=== PATIENT | female | born 1975 | race African-American/Black ===

== ENCOUNTER 2020-08-06 23:39 | Inpatient (IN) | payer SELFPAY ==
[~2020-08-06] VITALS: Ht 165.1 cm; Wt 81.8 kg
[2020-08-06] MEDS ORDERED: METHYLPREDNISOLONE SOD SUCC 125 MG/2 ML VIAL IV STA (23:54)
[2020-08-06] MEDS ORDERED: IPRATROPIUM BROMIDE (0.02%) 0.5MG/2.5ML NEB HHN STA (23:54)
[2020-08-06] MEDS ORDERED: ONDANSETRON HCL 4MG/2ML INJ IV STA (23:54)
[2020-08-06] MEDS ORDERED: EPINEPHRINE 1:1000 1 MG/ML AMP SUBCUT STA (23:54)
[2020-08-07] MEDS ORDERED: SODIUM CHLORIDE 0.9% 1,000 ML IV ONE
[2020-08-07] MEDS ORDERED: MAGNESIUM 2 G PREMIX 50 ML IV ONE
[2020-08-07] MEDS: ALBUTEROL (0.083%) 2.5MG/3ML NEB HHN SCH ×3 (00:10→01:40)
[2020-08-07 00:39] LABS: BASOPHILS % 0.3 % (0.0-2.0); EOSINOPHILS % 5.3 % (0.0-5.0); HEMATOCRIT. 42.6 % (36.0-48.0); HEMOGLOBIN. 14.1 g/dL (12.0-16.0); LYMPHOCYTES % 20.6 % (20.0-50.0); MEAN CORPUSCULAR HEMOGLOBIN 29.7 pg (28.0-32.0); MEAN CORPUSCULAR VOLUME 89.8 fL (81.0-99.0); MEAN PLATELET VOLUME 8.6 fl (7.4-10.4); MONOCYTES % 7.2 % (2.0-8.0); NEUTROPHILS % 66.6 % (40.0-76.0); PLATELET 314 x1000/uL (130-400); RED BLOOD CELL COUNT 4.74 mill/uL (4.2-5.4); RED CELL DISTRIBUTION WIDTH 14.6 % (11.6-14.6)
[2020-08-07 00:46] LABS: CHLORIDE 107 mEq/L (98-107)
[2020-08-07 03:05] LABS: BG BASE EXCESS -3.4 mmol/L (-2.0-2.0); BG DEOXYHEMOGLOBIN 4.7 % (0.0-5.0); BG FRACTION INSPIRED OXYGEN 28; BG HCO3 ACT 22.7 mmol/L (22.0-26.0); BG METHEMOGLOBIN 0.4 % (0.0-1.5); BG OXYGEN SATURATION 95.3 % (92.0-98.5); BG OXYHEMOGLOBIN 94.9 % (94.0-97.0); BG PCO2 44.9 mmHg (35.0-45.0); BG PH 7.322 (7.350-7.450); BG PO2 80.7 mmHg (75.0-100.0); BG SAMPLE SITE RIGHT RADIAL; BG TOTAL HEMOGLOBIN 14.4 g/dL (12.0-18.0); BG VENT MODE NASAL CANNULA
[2020-08-07] MEDS ORDERED: IPRATROPIUM/ALBUTEROL 0.5-3(2.5)MG/3ML NEB HHN PRN (03:15)
[2020-08-07] MEDS ORDERED: CLONIDINE 0.1MG TABLET PO PRN (03:15)
[2020-08-07] MEDS ORDERED: MAGNESIUM/ALUMINUM HYDROXIDE/SIMETHICONE 30ML UDC PO PRN (03:15)
[2020-08-07] MEDS ORDERED: DOCUSATE SODIUM 100MG CAPSULE PO PRN (03:15)
[2020-08-07] MEDS ORDERED: ONDANSETRON HCL 4MG/2ML INJ IV PRN (03:15)
[2020-08-07] MEDS ORDERED: ACETAMINOPHEN 325MG TABLET PO PRN (03:15)
[2020-08-07] MEDS ORDERED: IOHEXOL-350 100 ML BOTTLE ONE (03:46)
[2020-08-07] MEDS ORDERED: LEVOFLOXACIN 500MG PREMIX 100 ML IV SCH (04:00)
[2020-08-07 04:45] VITALS: BP 121/81
[2020-08-07] MEDS: IPRATROPIUM/ALBUTEROL 0.5-3(2.5)MG/3ML NEB HHN SCH ×2 (05:15→12:18)
[2020-08-07] MEDS: METHYLPREDNISOLONE SOD SUCC 125 MG/2 ML VIAL IV SCH ×4 (05:42→23:19)
[2020-08-07] MEDS: LEVOFLOXACIN 500MG PREMIX 100 ML IV SCH (05:43)
[2020-08-07 08:00] VITALS: BP 123/78
[2020-08-07] MEDS ORDERED: LEVO112C4 PO (08:06)
[2020-08-07] MEDS: AMLODIPINE 10MG TABLET PO SCH (08:28)
[2020-08-07] MEDS ORDERED: POTASSIUM CHLORIDE 20MEQ TABLET SR PO NR (10:15)
[2020-08-07] MEDS ORDERED: *PATIENT'S OWN MEDICATION STORAGE XX SCH (10:15)
[2020-08-07] MEDS: LEVOTHYROXINE SODIUM 112MCG TABLET PO SCH (10:35)
[2020-08-07 12:09] VITALS: BP 125/70
[2020-08-07 16:00] VITALS: BP 106/66
[2020-08-07 19:51] VITALS: BP 113/75
[2020-08-07] MEDS: ALBUTEROL 6.7GM HFA INHALER ORI SCH (20:02)
[2020-08-07 23:42] VITALS: BP 118/82
[2020-08-08] VITALS: BP 122/73
[2020-08-08] MEDS: ALBUTEROL 6.7GM HFA INHALER ORI SCH (01:25)
[2020-08-08 04:00] VITALS: BP 100/63
[2020-08-08] MEDS: METHYLPREDNISOLONE SOD SUCC 125 MG/2 ML VIAL IV SCH ×2 (06:03→12:09)
[2020-08-08 06:45] LABS: HEMATOCRIT. 37.4 % (36.0-48.0); HEMOGLOBIN. 12.6 g/dL (12.0-16.0); MEAN CORPUSCULAR HEMOGLOBIN 30.3 pg (28.0-32.0); MEAN CORPUSCULAR VOLUME 90.1 fL (81.0-99.0); MEAN PLATELET VOLUME 9.3 fl (7.4-10.4); PLATELET 290 x1000/uL (130-400); RED BLOOD CELL COUNT 4.15 mill/uL (4.2-5.4); RED CELL DISTRIBUTION WIDTH 15.2 % (11.6-14.6)
[2020-08-08 06:48] LABS: CHLORIDE 110 mEq/L (98-107)
[2020-08-08] MEDS: LEVOTHYROXINE SODIUM 112MCG TABLET PO SCH (07:58)
[2020-08-08 08:00] VITALS: BP 108/73
[2020-08-08 10:16] LABS: PLATELET ESTIMATE NORMAL
[2020-08-08] MEDS: ALBUTEROL (0.083%) 2.5MG/3ML NEB HHN SCH ×2 (10:24→15:55)
[2020-08-08] MEDS: AMLODIPINE 10MG TABLET PO SCH (10:44)
[2020-08-08] MEDS: LEVOFLOXACIN 500MG PREMIX 100 ML IV SCH (10:51)
[2020-08-08 12:00] VITALS: BP 111/79
[2020-08-08] MEDS ORDERED: P20 MT (12:39)
[2020-08-08] MEDS ORDERED: P20 PO (12:39)
[2020-08-08] MEDS ORDERED: P50 PO (12:39)
[2020-08-08] MEDS ORDERED: FLUT1BLS INH (12:40)
[2020-08-08 13:08] VITALS: BP 122/65
[2020-08-08 16:00] VITALS: BP 115/65
== END 2020-08-08 16:30 | disposition home or self-care (01) | DRG 720 ==
LOC: ER 23:54 → 7WST 08-07 02:39 → EDBEDREQSVC 08-07 02:53 → EDBEDREQ 08-07 02:53 → EDBEDREQTM 08-07 02:53 → ENRESERV 08-07 04:06 → 7WST 08-07 17:00 → 5WST 08-07 23:50
PROVIDERS: ADMIT Hospitalist; ATTEND Hospitalist
PROC: 5A09357 Assistance with Respiratory Ventilation, Less than 24 Consecutive Hours, Continuous Positive Airway Pressure (ICD-10-PCS; principal; 2020-08-07)
DX: A41.9 Sepsis, unspecified organism (principal); J96.00 Acute respiratory failure, unspecified whether with hypoxia or hypercapnia; J18.9 Pneumonia, unspecified organism; J45.902 Unspecified asthma with status asthmaticus; E03.9 Hypothyroidism, unspecified; E87.6 Hypokalemia; Z20.822 Contact with and (suspected) exposure to COVID-19
CPT/HCPCS: 36415; 36600; 71045; 71275; 80053; 82375; 82805; 83605; 83880; 84484; 85025; 85379; 93005; 94640; 94660; 99291; C1893; J1956; J2405; J2930; J3475; J3490; J7030; J7040; Q9967; U0003; U0005